=== PATIENT | female | born 1950 | race Caucasian/White ===

== ENCOUNTER 2017-01-13 23:24 | Emergency (ER) | payer MEDICARE ==
--- NOTE | ~2017-01-13 | CT71 ---
[facility] A Service [facility] RADIOLOGY TEXT RESULTS PATIENT: TIGRE SARAVIA LOCATION: [facility] : 49 UNIT #: [id number] AGE: [address]: Wes Stafford MD SEX: F ORDER DR: [id number] [facility] [address] [place], [place] [address] [id number] E MR#: [id number] Acc #: [id number] NAME: TIGRE SARAVIA. : 1950 SEX: F STUDY DATE/TIME: 01/14/2017 1:37 UNIT: [facility] ROOM: STUDY DESCRIPTION: CT Head Wo Contrast Attending Physician: Wes Stafford M.D. Ordering Physician: Wes Stafford M.D. Primary Care Physician: Sylvia Rodrigues MEDICAL IMAGING REPORT This report is preliminary unless electronic signature is present EXAM CT head, noncontrast, 01/14/2017 HISTORY 66-year-old female in the ED after head injury. Fell tonight prior to arrival, striking back of head. She complains of headaches. Past history of stroke. TECHNIQUE CT examination of the head without IV contrast. This CT examination was performed with one or more of the following radiation dose reduction techniques: automatic exposure control, adjustment of mA and/or kV according to patient size, and iterative reconstruction. COMPARISON CT head, 06/28/2016. FINDINGS No acute intracranial abnormality is identified. Chronic infarct in the distribution of the left posterior cerebral artery is unchanged as is old lacunar infarct in the head of the right caudate nucleus. Moderate patchy chronic low-attenuation white matter changes are nonspecific but likely related to chronic microvascular disease. These findings are stable. No evidence of intracranial hemorrhage, mass, mass effect, cerebral edema or progressive ventricular enlargement. IMPRESSION 1. No acute intracranial abnormality. No skull fracture. 2. Old left DIGITAL TECH infarct. Chronic lacunar infarct in the head of the right caudate nucleus. [facility] A Service [facility] RADIOLOGY TEXT RESULTS PATIENT: TIGRE SARAVIA LOCATION: [facility] : 49 UNIT #: [id number] AGE: [address]: Wes Stafford MD SEX: F ORDER DR: 3. Stable diffuse chronic changes as noted above. 4. No change since 06/28/2016. Dictated by... Carlos Zamora M.D. THIS IS AN ELECTRONICALLY VERIFIED REPORT Carlos Zamora M.D. at 01/14/2017 9:49 PM KATELYN/fernando TD: 01/14/2017 07:53 JOB #: [id number] MEDICAL IMAGING REPORT Page 1 of 1 COPY
--- NOTE | ~2017-01-13 | CR210 ---
[facility] A Service of [facility] RADIOLOGY TEXT RESULTS PATIENT: TIGRE SARAVIA LOCATION: [facility] : 49 UNIT #: [id number] AGE: [address]: Wes Stafford MD SEX: F ORDER DR: [id number] [facility] [address] [place], [place] [address] [id number] E MR#: [id number] Acc #: [id number] NAME: TIGRE SARAVIA. : 1950 SEX: F STUDY DATE/TIME: 01/14/2017 0:51 UNIT: [facility] ROOM: STUDY DESCRIPTION: CR Ribs Uni 2 View W PA Ch Lt Attending Physician: Wes Stafford M.D. Ordering Physician: Wes Stafford M.D. Primary Care Physician: Sylvia Rodrigues MEDICAL IMAGING REPORT This report is preliminary unless electronic signature is present EXAM Chest and left rib series 01/14/2017 HISTORY 63-year-old female in the ED complaining of left lower rib pain after a fall yesterday. TECHNIQUE AP upright chest x-ray with 4 view left rib series. Cardiac pacer/AICD obscures portions of the ribs on some of the images. FINDINGS No acute rib fracture is identified. The lungs are clear with no visible pneumothorax, pulmonary infiltrate or pleural effusion. Mild cardiomegaly. Postop changes CABG. Biventricular cardiac pacer/AICD. IMPRESSION 1. No visible rib fracture. 2. No active disease in the chest. No pneumothorax or pleural effusion. 3. Mild cardiomegaly. CABG. Biventricular cardiac pacer. Dictated by... Carlos Zamora M.D. THIS IS AN ELECTRONICALLY VERIFIED REPORT Carlos Zamora M.D. at 01/14/2017 9:48 PM KATELYN/fernando TD: 01/14/2017 07:16 [facility] A Service of [facility] RADIOLOGY TEXT RESULTS PATIENT: TIGRE SARAVIA LOCATION: [facility] : 49 UNIT #: [id number] AGE: [address]: Wes Stafford MD SEX: F ORDER DR: EDYTA #: [id number] MEDICAL IMAGING REPORT Page 1 of 1 COPY
--- NOTE | ~2017-01-13 | CR181 ---
[facility] A Service of [facility] RADIOLOGY TEXT RESULTS PATIENT: TIGRE SARAVIA LOCATION: [facility] : 49 UNIT #: [id number] AGE: [address]: Wes Stafford MD SEX: F ORDER DR: [id number] [facility] [address] [place], [place] [address] [id number] E MR#: [id number] Acc #: [id number] NAME: TIGRE SARAVIA. : 1950 SEX: F STUDY DATE/TIME: 01/14/2017 0:59 UNIT: [facility] ROOM: STUDY DESCRIPTION: CR Lumbar Spine 2 or 3 Views Attending Physician: Wes Stafford M.D. Ordering Physician: Wes Stafford M.D. Primary Care Physician: Sylvia Rodrigues MEDICAL IMAGING REPORT This report is preliminary unless electronic signature is present EXAM Lumbar spine series 01/14/2017 HISTORY 66-year-old female in the ED complaining of low back pain after a fall yesterday. TECHNIQUE Three-view lumbar spine series. FINDINGS The exam shows mild superior endplate vertebral compression fracture deformity at L4 with loss of anterior vertebral body height. No additional acute or chronic lumbar fracture is demonstrated. [id number] multilevel degenerative disc space narrowing, greatest at L5-S1. Advanced lower lumbar degenerative facet arthropathy. Lumbar vertebral alignment is normal. IMPRESSION 1. L4 vertebral compression fracture as noted. 2. Multilevel degenerative disc disease and advanced lower lumbar degenerative facet arthropathy. Dictated by... Carlos Zamora M.D. THIS IS AN ELECTRONICALLY VERIFIED REPORT Carlos Zamora M.D. at 01/14/2017 9:48 PM KATELYN/fernando TD: 01/14/2017 07:19 [facility] A Service of [facility] RADIOLOGY TEXT RESULTS PATIENT: TIGRE SARAVIA LOCATION: [facility] : 49 UNIT #: [id number] AGE: [address]: Wes Stafford MD SEX: F ORDER DR: JOB #: [id number] MEDICAL IMAGING REPORT Page 1 of 1 COPY
[~2017-01-13 23:24] MED LIST: ATORVASTATIN CA40 MG PO; CARVEDILOL25 MG PO; COUMADIN4 MG PO; KEPPRA500 M2 PO; LISINOPRIL5 MG PO; METFORMIN HCL850 MG PO; SPIRONOLACTONE-1 TAB PO; WARFARIN SODIUM6 M1 PO; ZOLOFT50 MG PO
== END 2017-01-14 02:15 | disposition home or self-care (01) ==
LOC: CED 23:24
DX: S20.212A Contusion of left front wall of thorax, initial encounter (principal); S32.049A Unspecified fracture of fourth lumbar vertebra, initial encounter for closed fracture; I10 Essential (primary) hypertension; E11.9 Type 2 diabetes mellitus without complications; R56.9 Unspecified convulsions; J44.9 Chronic obstructive pulmonary disease, unspecified; Z79.01 Long term (current) use of anticoagulants; W01.0XXA Fall on same level from slipping, tripping and stumbling without subsequent striking against object, initial encounter; Y92.009 Unspecified place in unspecified non-institutional (private) residence as the place of occurrence of the external cause
CPT/HCPCS: 70450; 71101; 72100; 99284